=== PATIENT | female | born 1960 | race Native Hawaiian/Other Pacific Islander ===

== ENCOUNTER 2016-08-27 14:36 | Emergency (ER) | payer BC, OTHER ==
[~2016-08-27] VITALS: Ht 170.2 cm; Wt 129.3 kg
[2016-08-27 14:50] VITALS: TEMP 98
[2016-08-27 15:30] VITALS: BP 157/98
== END 2016-08-27 15:30 | disposition home or self-care (01) ==
LOC: ED 14:36
DX: S33.5XXA Sprain of ligaments of lumbar spine, initial encounter (principal); S39.012A Strain of muscle, fascia and tendon of lower back, initial encounter; V43.92XA Unspecified car occupant injured in collision with other type car in traffic accident, initial encounter
CPT/HCPCS: 99281